=== PATIENT | female | born 1985 | race Caucasian/White ===

== ENCOUNTER 2018-03-28 17:51 | Inpatient (IN) | payer MEDICAID ==
[2018-03-28] MEDS: FAMOTIDINE 20 MG INJ IV (18:45)
[2018-03-28] MEDS: ONDANSETRON 4 MG INJ IV ×2 (18:45→21:03)
[2018-03-28] MEDS: morphine 4 MG/ML VIAL IV (18:45)
[2018-03-28] MEDS: SOD CHLORIDE 0.9% 1,000 ML IV ×2 (18:45→21:12)
[2018-03-28 19:01] LABS: ADD MAN DIFF? NO; ADD UMIC YES; UR ASCORBIC ACID NEGATIVE (NEGATIVE); UR BACTERIA FEW /HPF (NONE SEEN); UR BILIRUBIN (Dip) NEGATIVE (NEGATIVE); UR BLOOD (Dip) 1+ mg/dL (NEGATIVE); UR CLARITY SLIGHTLY CLOUDY (CLEAR); UR COLOR YELLOW (YELLOW); UR GLUCOSE (Dip) NEGATIVE (NEGATIVE); UR KETONES (Dip) NEGATIVE (NEGATIVE); UR LEUKOCYTE ESTERASE (Dip) 1+ Leu/ul (NEGATIVE); UR MUCUS MODERATE /HPF (NONE SEEN); UR NITRITE (Dip) POSITIVE (NEGATIVE); UR RBC 2 /HPF (0-5); UR SPECIFIC GRAVITY (Dip) 1.032 (1.003-1.030); UR SQUAMOUS EPITHELIAL CELL FEW /HPF (FEW); UR TOTAL PROTEIN (Dip) 1+ mg/dl (NEGATIVE); UR UROBILINOGEN (Dip) 1+ mg/dL (NEGATIVE); UR WBC 24 /HPF (0-5)
[2018-03-28 19:02] LABS: WHITE BLOOD COUNT 7.5 10^3/ul (4.8-10.8)
[2018-03-28 19:02] LABS: BASOPHIL # 0.1 10^3/ul (0.0-0.1); BASOPHILS % 0.7 % (0.0-2.0); EOSINOPHILS # 0.3 10^3/ul (0.0-0.5); EOSINOPHILS % 4.3 % (0.0-7.0); HEMATOCRIT 39.1 % (37.0-47.0); LYMPHOCYTES # 2.6 10^3/ul (0.8-2.9); LYMPHOCYTES % 35.2 % (15.0-51.0); MEAN CORPUSCULAR HEMOGLOBIN 28.8 pg (29.0-33.0); MEAN CORPUSCULAR HGB CONC 33.2 g/dl (32.0-37.0); MEAN CORPUSCULAR VOLUME 86.7 fl (82.0-101.0); MEAN PLATELET VOLUME 9.6 fl (7.4-10.4); MONOCYTE # 0.6 10^3/ul (0.3-0.9); MONOCYTES % 8.4 % (0.0-11.0); NEUTROPHIL # 3.8 10^3/ul (1.6-7.5); NEUTROPHILS % 50.9 % (39.0-77.0); PLATELET COUNT 310 10^3/UL (140-415); RED BLOOD COUNT 4.51 10^6/ul (4.20-5.40); RED CELL DISTRIBUTION WIDTH 13.6 % (11.5-14.5)
[2018-03-28 19:19] LABS: ALANINE AMINOTRANSFERASE 66 IU/L (13-69); ALBUMIN 4.2 g/dl (3.3-4.9); ALBUMIN/GLOBULIN RATIO 1.13; ALKALINE PHOSPHATASE 76 IU/L (42-121); ANION GAP 13 (8-16); ASPARTATE AMINO TRANSFERASE 37 IU/L (15-46); BILIRUBIN,INDIRECT 1.6 mg/dl (0-1.1); BILIRUBIN,TOTAL 1.6 mg/dl (0.2-1.3); BLOOD UREA NITROGEN 19 mg/dl (7-20); CALCIUM 9.3 mg/dl (8.4-10.2); CARBON DIOXIDE 26 mmol/L (21-31); CHLORIDE 109 mmol/L (97-110); CREATININE 0.75 mg/dl (0.44-1.00); GLUCOSE 79 mg/dl (70-220); LIPASE 907 U/L (23-300); POTASSIUM 3.4 mmol/L (3.5-5.1); SODIUM 145 mmol/L (135-144); TOTAL PROTEIN 7.9 g/dl (6.1-8.1)
[2018-03-28] MEDS: HYDROmorphONE 1 MG/5 ML IV SYRINGE IV (21:03)
[2018-03-28] MEDS: CEFTRIAXONE 1 GM/50 ML (PMX) 50 ML IVPB (21:11)
[2018-03-29] MEDS: ONDANSETRON 4 MG INJ IV (02:38)
[2018-03-29] MEDS: DEXTROSE 5%-0.45% NACL 1,000 ML IV ×4 (02:38→23:06)
[2018-03-29] MEDS: morphine 2 MG INJ IV (02:42)
[2018-03-29 06:19] LABS: ADD MAN DIFF? NO
[2018-03-29 06:35] LABS: WHITE BLOOD COUNT 8.7 10^3/ul (4.8-10.8)
[2018-03-29 06:35] LABS: BASOPHILS % 0.5 % (0.0-2.0); EOSINOPHILS # 0.1 10^3/ul (0.0-0.5); EOSINOPHILS % 0.8 % (0.0-7.0); HEMATOCRIT 37.1 % (37.0-47.0); HEMOGLOBIN 12.2 g/dl (12.0-16.0); LYMPHOCYTES # 1.6 10^3/ul (0.8-2.9); MEAN CORPUSCULAR HEMOGLOBIN 28.7 pg (29.0-33.0); MEAN CORPUSCULAR HGB CONC 32.9 g/dl (32.0-37.0); MEAN CORPUSCULAR VOLUME 87.3 fl (82.0-101.0); MEAN PLATELET VOLUME 9.6 fl (7.4-10.4); MONOCYTE # 0.4 10^3/ul (0.3-0.9); MONOCYTES % 4.6 % (0.0-11.0); NEUTROPHIL # 6.6 10^3/ul (1.6-7.5); NEUTROPHILS % 75.8 % (39.0-77.0); PLATELET COUNT 272 10^3/UL (140-415); RED BLOOD COUNT 4.25 10^6/ul (4.20-5.40); RED CELL DISTRIBUTION WIDTH 13.6 % (11.5-14.5)
[2018-03-29 06:38] LABS: ALANINE AMINOTRANSFERASE 61 IU/L (13-69); ALBUMIN 3.6 g/dl (3.3-4.9); ALBUMIN/GLOBULIN RATIO 1.09; ALKALINE PHOSPHATASE 56 IU/L (42-121); ANION GAP 13 (8-16); ASPARTATE AMINO TRANSFERASE 30 IU/L (15-46); BILIRUBIN,INDIRECT 1.5 mg/dl (0-1.1); BILIRUBIN,TOTAL 1.5 mg/dl (0.2-1.3); BLOOD UREA NITROGEN 12 mg/dl (7-20); CARBON DIOXIDE 21 mmol/L (21-31); CHLORIDE 113 mmol/L (97-110); CHOL/HDL RATIO 2.8 RATIO; CHOLESTEROL 110 mg/dl (100-200); CREATININE 0.59 mg/dl (0.44-1.00); GLUCOSE 115 mg/dl (70-220); HDL CHOLESTEROL 39 mg/dl (34-82); LDL CHOLESTEROL,CALCULATED 62 mg/dl; POTASSIUM 3.9 mmol/L (3.5-5.1); SODIUM 143 mmol/L (135-144); TOTAL PROTEIN 6.9 g/dl (6.1-8.1); TRIGLYCERIDES 44 mg/dl (0-149)
[2018-03-29 06:44] LABS: HEMOGLOBIN A1C 5.3 % (0-5.9)
[2018-03-29] MEDS: CEFTRIAXONE 1 GM/50 ML (PMX) 50 ML IVPB (09:30)
[2018-03-29] MEDS: PANTOPRAZOLE 40 MG INJ IV (12:47)
[2018-03-30] MEDS: PANTOPRAZOLE 40 MG INJ IV (05:20)
[2018-03-30] MEDS: DEXTROSE 5%-0.45% NACL 1,000 ML IV ×4 (08:00→21:32)
[2018-03-30] MEDS: CEFTRIAXONE 1 GM/50 ML (PMX) 50 ML IVPB (10:01)
[2018-03-31 06:21] LABS: ADD MAN DIFF? NO
[2018-03-31] MEDS: PANTOPRAZOLE 40 MG INJ IV (06:28)
[2018-03-31 06:38] LABS: BASOPHILS % 0.7 % (0.0-2.0); EOSINOPHILS # 0.2 10^3/ul (0.0-0.5); HEMATOCRIT 36.8 % (37.0-47.0); HEMOGLOBIN 12.1 g/dl (12.0-16.0); LYMPHOCYTES # 1.8 10^3/ul (0.8-2.9); LYMPHOCYTES % 29.6 % (15.0-51.0); MEAN CORPUSCULAR HEMOGLOBIN 28.5 pg (29.0-33.0); MEAN CORPUSCULAR HGB CONC 32.9 g/dl (32.0-37.0); MEAN CORPUSCULAR VOLUME 86.6 fl (82.0-101.0); MEAN PLATELET VOLUME 9.5 fl (7.4-10.4); MONOCYTE # 0.5 10^3/ul (0.3-0.9); MONOCYTES % 8.6 % (0.0-11.0); NEUTROPHIL # 3.4 10^3/ul (1.6-7.5); NEUTROPHILS % 56.8 % (39.0-77.0); PLATELET COUNT 261 10^3/UL (140-415); RED BLOOD COUNT 4.25 10^6/ul (4.20-5.40); RED CELL DISTRIBUTION WIDTH 13.5 % (11.5-14.5)
[2018-03-31 06:38] LABS: WHITE BLOOD COUNT 5.9 10^3/ul (4.8-10.8)
[2018-03-31 07:02] LABS: ALANINE AMINOTRANSFERASE 51 IU/L (13-69); ALBUMIN 3.4 g/dl (3.3-4.9); ALBUMIN/GLOBULIN RATIO 1.06; ALKALINE PHOSPHATASE 47 IU/L (42-121); ANION GAP 14 (8-16); ASPARTATE AMINO TRANSFERASE 27 IU/L (15-46); BILIRUBIN,INDIRECT 1.8 mg/dl (0-1.1); BILIRUBIN,TOTAL 1.8 mg/dl (0.2-1.3); BLOOD UREA NITROGEN 3 mg/dl (7-20); CALCIUM 8.4 mg/dl (8.4-10.2); CARBON DIOXIDE 22 mmol/L (21-31); CHLORIDE 109 mmol/L (97-110); CREATININE 0.66 mg/dl (0.44-1.00); GLUCOSE 95 mg/dl (70-220); MAGNESIUM 1.8 mg/dl (1.7-2.5); POTASSIUM 3.5 mmol/L (3.5-5.1); SODIUM 141 mmol/L (135-144); TOTAL PROTEIN 6.6 g/dl (6.1-8.1)
[2018-03-31 07:10] LABS: LIPASE 186 U/L (23-300)
[2018-03-31] MEDS: DEXTROSE 5%-0.45% NACL 1,000 ML IV ×2 (08:43→22:21)
[2018-03-31] MEDS: CEFTRIAXONE 1 GM/50 ML (PMX) 50 ML IVPB (08:48)
[2018-03-31] MEDS: POTASSIUM CHLORIDE (SR) 20 MEQ TAB PO (09:05)
[2018-03-31] MEDS: morphine 2 MG INJ IV (09:22)
[2018-04-01] MEDS: SOD CHLORIDE 0.9% 500 ML IV (03:46)
[2018-04-01] MEDS: PANTOPRAZOLE 40 MG INJ IV (05:40)
[2018-04-01 06:19] LABS: ADD MAN DIFF? NO
[2018-04-01 06:24] LABS: WHITE BLOOD COUNT 6.3 10^3/ul (4.8-10.8)
[2018-04-01 06:24] LABS: BASOPHILS % 0.6 % (0.0-2.0); EOSINOPHILS # 0.2 10^3/ul (0.0-0.5); EOSINOPHILS % 3.7 % (0.0-7.0); HEMATOCRIT 36.2 % (37.0-47.0); LYMPHOCYTES % 32.3 % (15.0-51.0); MEAN CORPUSCULAR HEMOGLOBIN 28.8 pg (29.0-33.0); MEAN CORPUSCULAR HGB CONC 33.1 g/dl (32.0-37.0); MEAN CORPUSCULAR VOLUME 86.8 fl (82.0-101.0); MEAN PLATELET VOLUME 9.6 fl (7.4-10.4); MONOCYTE # 0.6 10^3/ul (0.3-0.9); MONOCYTES % 8.8 % (0.0-11.0); NEUTROPHIL # 3.4 10^3/ul (1.6-7.5); NEUTROPHILS % 54.3 % (39.0-77.0); PLATELET COUNT 255 10^3/UL (140-415); RED BLOOD COUNT 4.17 10^6/ul (4.20-5.40); RED CELL DISTRIBUTION WIDTH 13.7 % (11.5-14.5)
[2018-04-01 06:49] LABS: ALANINE AMINOTRANSFERASE 51 IU/L (13-69); ALBUMIN 3.5 g/dl (3.3-4.9); ALBUMIN/GLOBULIN RATIO 1.06; ALKALINE PHOSPHATASE 48 IU/L (42-121); ANION GAP 13 (8-16); ASPARTATE AMINO TRANSFERASE 30 IU/L (15-46); BILIRUBIN,INDIRECT 1.9 mg/dl (0-1.1); BILIRUBIN,TOTAL 1.9 mg/dl (0.2-1.3); BLOOD UREA NITROGEN 4 mg/dl (7-20); CALCIUM 8.2 mg/dl (8.4-10.2); CARBON DIOXIDE 23 mmol/L (21-31); CHLORIDE 111 mmol/L (97-110); CREATININE 0.68 mg/dl (0.44-1.00); GLUCOSE 82 mg/dl (70-220); MAGNESIUM 1.8 mg/dl (1.7-2.5); POTASSIUM 3.6 mmol/L (3.5-5.1); SODIUM 143 mmol/L (135-144); TOTAL PROTEIN 6.8 g/dl (6.1-8.1)
[2018-04-01] MEDS: DEXTROSE 5%-0.45% NACL 1,000 ML IV (12:04)
[2018-04-01] MEDS ORDERED: morphine LIQ (10 MG/5 ML) CUP PO (16:30)
[2018-04-02] MEDS: DEXTROSE 5%-0.45% NACL 1,000 ML IV ×2 (00:31→06:00)
[2018-04-02] MEDS: PANTOPRAZOLE (EC) 40 MG TAB PO (05:21)
[2018-04-02 06:16] LABS: ADD MAN DIFF? NO
[2018-04-02 06:20] LABS: WHITE BLOOD COUNT 6.3 10^3/ul (4.8-10.8)
[2018-04-02 06:20] LABS: BASOPHILS % 0.5 % (0.0-2.0); EOSINOPHILS # 0.2 10^3/ul (0.0-0.5); EOSINOPHILS % 3.7 % (0.0-7.0); HEMATOCRIT 37.4 % (37.0-47.0); HEMOGLOBIN 12.4 g/dl (12.0-16.0); LYMPHOCYTES # 1.9 10^3/ul (0.8-2.9); LYMPHOCYTES % 30.4 % (15.0-51.0); MEAN CORPUSCULAR HEMOGLOBIN 28.8 pg (29.0-33.0); MEAN CORPUSCULAR HGB CONC 33.2 g/dl (32.0-37.0); MEAN PLATELET VOLUME 9.7 fl (7.4-10.4); MONOCYTE # 0.5 10^3/ul (0.3-0.9); MONOCYTES % 7.5 % (0.0-11.0); NEUTROPHIL # 3.6 10^3/ul (1.6-7.5); NEUTROPHILS % 57.4 % (39.0-77.0); PLATELET COUNT 276 10^3/UL (140-415); RED CELL DISTRIBUTION WIDTH 13.7 % (11.5-14.5)
[2018-04-02 06:47] LABS: ALANINE AMINOTRANSFERASE 59 IU/L (13-69); ALBUMIN 3.6 g/dl (3.3-4.9); ALBUMIN/GLOBULIN RATIO 1.12; ALKALINE PHOSPHATASE 50 IU/L (42-121); ANION GAP 14 (8-16); ASPARTATE AMINO TRANSFERASE 34 IU/L (15-46); BILIRUBIN,INDIRECT 1.8 mg/dl (0-1.1); BILIRUBIN,TOTAL 1.8 mg/dl (0.2-1.3); BLOOD UREA NITROGEN 7 mg/dl (7-20); CALCIUM 8.7 mg/dl (8.4-10.2); CARBON DIOXIDE 25 mmol/L (21-31); CHLORIDE 109 mmol/L (97-110); GLUCOSE 84 mg/dl (70-220); MAGNESIUM 1.9 mg/dl (1.7-2.5); POTASSIUM 3.7 mmol/L (3.5-5.1); SODIUM 144 mmol/L (135-144); TOTAL PROTEIN 6.8 g/dl (6.1-8.1)
== END 2018-04-02 11:30 | disposition home or self-care (01) | DRG 439 ==
LOC: MS2 03-29 00:30 → FTE 17:51
DX: K85.90 Acute pancreatitis without necrosis or infection, unspecified (principal); N39.0 Urinary tract infection, site not specified; E87.6 Hypokalemia; E80.7 Disorder of bilirubin metabolism, unspecified
CPT/HCPCS: 74181; 76705; 80053; 80061; 81001; 81025; 83036; 83690; 83735; 85025; 87086; 93005